=== PATIENT | female | born 1985 | race African-American/Black ===

== ENCOUNTER 2019-01-17 05:08 | Emergency (ER) | payer OTHER ==
[~2019-01-17] VITALS: Ht 170.2 cm; Wt 123.0 kg
[~2019-01-17 05:08] MED LIST: METF500T PO
[2019-01-17] MEDS ORDERED: ONDANSETRON 4MG ODT PO ONE (05:45)
[2019-01-17] MEDS ORDERED: ONDANSETRON HCL 4MG/2ML INJ IV STA (06:20)
[2019-01-17] MEDS ORDERED: SODIUM CHLORIDE 0.9% 1,000 ML IV ONE (06:20)
[2019-01-17 07:44] LABS: BASOPHILS % 0.8 % (0.0-2.0); EOSINOPHILS % 0.2 % (0.0-5.0); HEMATOCRIT. 39.9 % (36.0-48.0); HEMOGLOBIN. 12.9 g/dL (12.0-16.0); LYMPHOCYTES % 15.1 % (20.0-50.0); MEAN CORPUSCULAR HEMOGLOBIN 24.7 pg (28.0-32.0); MEAN CORPUSCULAR VOLUME 76.7 fL (81.0-99.0); MEAN PLATELET VOLUME 9.3 fl (7.4-10.4); MONOCYTES % 6.7 % (2.0-8.0); NEUTROPHILS % 77.2 % (40.0-76.0); PLATELET 220 x1000/uL (130-400); RED BLOOD CELL COUNT 5.21 mill/uL (4.2-5.4); RED CELL DISTRIBUTION WIDTH 14.4 % (11.6-14.6)
[2019-01-17 07:47] LABS: CHLORIDE 101 mEq/L (98-107)
[2019-01-17 07:52] LABS: ETHANOL BLOOD < 10 mg/dL
[2019-01-17] MEDS ORDERED: VISCOUS LIDOCAINE 2% 15 ML UDC PO ONE (09:30)
[2019-01-17 10:27] VITALS: BP 114/53
== END 2019-01-17 10:46 | disposition home or self-care (01) ==
LOC: ER 05:08
DX: F10.129 Alcohol abuse with intoxication, unspecified (principal); Y90.0 Blood alcohol level of less than 20 mg/100 ml; R11.2 Nausea with vomiting, unspecified; E11.9 Type 2 diabetes mellitus without complications
CPT/HCPCS: 36415; 80053; 80320; 81025; 82962; 83690; 85025; 96361; 96374; 99283; J2405; J7030; Q0162; G0480

== ENCOUNTER 2019-03-31 02:13 | Emergency (ER) | payer MEDICAID, OTHER ==
[~2019-03-31] VITALS: Ht 157.5 cm; Wt 123.0 kg
[2019-03-31 06:02] VITALS: BP 145/73
== END 2019-03-31 07:40 | disposition home or self-care (01) ==
LOC: ER 02:13
DX: H10.9 Unspecified conjunctivitis (principal); L56.8 Other specified acute skin changes due to ultraviolet radiation; R51 Headache; E11.9 Type 2 diabetes mellitus without complications
CPT/HCPCS: 99283

== ENCOUNTER 2019-09-23 18:34 | Emergency (ER) | payer MEDICAID ==
[~2019-09-23] VITALS: Ht 157.5 cm; Wt 122.0 kg
[2019-09-23] MEDS ORDERED: KETOROLAC 15MG/ML VIAL IV ONE (22:00)
[2019-09-23] MEDS ORDERED: ACETAMINOPHEN 325MG TABLET PO ONE (22:00)
[2019-09-24 00:52] VITALS: BP 112/64
== END 2019-09-24 01:02 | disposition home or self-care (01) ==
LOC: ER 18:34
DX: J06.9 Acute upper respiratory infection, unspecified (principal); R05 Cough; M79.10 Myalgia, unspecified site; E11.9 Type 2 diabetes mellitus without complications
CPT/HCPCS: 81025; 87804; 96374; 99283; J1885

== ENCOUNTER 2020-03-02 14:37 | Emergency (ER) | payer MEDICAID ==
[~2020-03-02] VITALS: Ht 157.5 cm; Wt 125.0 kg
[2020-03-02] MEDS ORDERED: BACITRACIN ZINC OINT UDPKT TOP ONE (15:15)
[2020-03-02] MEDS ORDERED: LIDOCAINE 1%/EPI 1:100,000 10 ML VIAL IJ ONE (15:15)
[2020-03-02] MEDS ORDERED: IBUPROFEN 600MG TABLET PO ONE (15:15)
[2020-03-02 16:14] VITALS: BP 119/77
== END 2020-03-02 16:15 | disposition home or self-care (01) ==
LOC: ER 14:37
DX: L02.413 Cutaneous abscess of right upper limb (principal); E11.9 Type 2 diabetes mellitus without complications
CPT/HCPCS: 99283; J3490

== ENCOUNTER 2020-05-03 10:11 | Emergency (ER) | payer MEDICAID ==
[~2020-05-03] VITALS: Ht 157.5 cm; Wt 122.0 kg
[2020-05-03 10:15] VITALS: BP 126/81
== END 2020-05-03 11:05 | disposition home or self-care (01) ==
LOC: ER 10:11
DX: B36.9 Superficial mycosis, unspecified (principal); L30.4 Erythema intertrigo; E11.9 Type 2 diabetes mellitus without complications
CPT/HCPCS: 99282; 99283

== ENCOUNTER 2020-05-17 23:27 | Emergency (ER) | payer MEDICAID, OTHER ==
[~2020-05-17] VITALS: Ht 170.2 cm; Wt 100.0 kg
[2020-05-17] MEDS ORDERED: SODIUM CHLORIDE 0.9% 1,000 ML IV ONE (23:50)
[2020-05-18] MEDS ORDERED: INSULIN REGULAR (HUMULIN R) 300UNITS/3ML SUBCUT NR ×2 (00:15→03:00)
[2020-05-18] MEDS ORDERED: ONDANSETRON HCL 4MG/2ML INJ IV ONE (00:15)
[2020-05-18 00:17] LABS: BASOPHILS % 0.5 % (0.0-2.0); EOSINOPHILS % 1.8 % (0.0-5.0); HEMATOCRIT. 39.2 % (36.0-48.0); HEMOGLOBIN. 12.6 g/dL (12.0-16.0); LYMPHOCYTES % 32.1 % (20.0-50.0); MEAN CORPUSCULAR HEMOGLOBIN 25.1 pg (28.0-32.0); MEAN CORPUSCULAR VOLUME 77.9 fL (81.0-99.0); MEAN PLATELET VOLUME 9.4 fl (7.4-10.4); NEUTROPHILS % 56.6 % (40.0-76.0); PLATELET 180 x1000/uL (130-400); RED BLOOD CELL COUNT 5.03 mill/uL (4.2-5.4); RED CELL DISTRIBUTION WIDTH 14.7 % (11.6-14.6)
[2020-05-18 00:19] LABS: CHLORIDE 102 mEq/L (98-107)
[2020-05-18 00:24] LABS: ETHANOL BLOOD < 10 mg/dL
[2020-05-18 00:31] LABS: HCG SCREEN NEGATIVE
[2020-05-18 02:20] LABS: CLARITY URINE CLEAR (CLEAR); COLOR URINE STRAW (YELLOW); PROTEIN URINE TRACE (NEGATIVE); SPECIFIC GRAVITY URINE 1.041 (1.005-1.030)
[2020-05-18 02:21] LABS: KETONES URINE NEGATIVE (NEGATIVE); NITRITE URINE NEGATIVE (NEGATIVE); OCCULT BLOOD URINE TRACE (NEGATIVE); UROBILINOGEN URINE 0.2 E.U./dL (0.2-1.0)
[2020-05-18 02:22] LABS: LEUKOCYTE ESTERASE URINE NEGATIVE (NEGATIVE)
[2020-05-18 02:27] LABS: *AMPHETAMINES SCREEN URINE NEGATIVE (NEGATIVE); *BARBITURATES SCREEN URINE NEGATIVE (NEGATIVE)
[2020-05-18 02:28] LABS: *BENZODIAZEPINES SCREEN URINE NEGATIVE (NEGATIVE); *COCAINE SCREEN URINE NEGATIVE (NEGATIVE); CANNABINOID URINE SCREEN PRESUMTIVE POSITIVE (NEGATIVE); METHADONE URINE SCREEN NEGATIVE (NEGATIVE); OPIATES URINE SCREEN NEGATIVE (NEGATIVE); PHENCYCLIDINE URINE SCREEN NEGATIVE (NEGATIVE)
[2020-05-18] MEDS ORDERED: INSULIN REGULAR (HUMULIN R) UD 100 UNITS/ML SYR SUBCUT ONE ×2 (02:45)
[2020-05-18 06:00] VITALS: BP 142/82
== END 2020-05-18 06:30 | disposition home or self-care (01) ==
LOC: ER 23:27
DX: T40.7X1A Poisoning by cannabis (derivatives), accidental (unintentional), initial encounter (principal); Y92.9 Unspecified place or not applicable; E11.65 Type 2 diabetes mellitus with hyperglycemia; Z79.4 Long term (current) use of insulin
CPT/HCPCS: 36415; 80053; 80305; 80320; 81003; 82962; 84703; 85025; 93005; 96361; 96372; 96374; 99285; J1815; J2405; J7030; G0480

== ENCOUNTER 2020-09-01 16:17 | Emergency (ER) | payer MEDICAID, OTHER ==
[~2020-09-01] VITALS: Ht 157.5 cm; Wt 126.0 kg
[2020-09-01 20:14] VITALS: BP 139/90
== END 2020-09-01 20:17 | disposition home or self-care (01) ==
LOC: ER 16:17
DX: M79.652 Pain in left thigh (principal); L02.416 Cutaneous abscess of left lower limb; L73.9 Follicular disorder, unspecified; E11.9 Type 2 diabetes mellitus without complications; F12.10 Cannabis abuse, uncomplicated
CPT/HCPCS: 99282; 99283

== ENCOUNTER 2020-09-17 09:03 | Emergency (ER) | payer OTHER ==
[~2020-09-17] VITALS: Ht 157.5 cm; Wt 125.0 kg
[2020-09-17] MEDS ORDERED: KETOROLAC 60MG/2ML VIAL IM ONE (10:15)
[2020-09-17 10:21] VITALS: BP 159/94
== END 2020-09-17 10:54 | disposition home or self-care (01) ==
LOC: ER 09:03
DX: K04.7 Periapical abscess without sinus (principal); R68.84 Jaw pain; E11.9 Type 2 diabetes mellitus without complications; F12.10 Cannabis abuse, uncomplicated; Z79.84 Long term (current) use of oral hypoglycemic drugs
CPT/HCPCS: 96372; 99283; J1885

== ENCOUNTER 2021-02-13 17:32 | Emergency (ER) | payer MEDICAID, OTHER ==
[~2021-02-13] VITALS: Ht 157.5 cm; Wt 126.0 kg
[2021-02-13] MEDS ORDERED: BACITRACIN ZINC OINT UDPKT TOP ONE (18:00)
[2021-02-13] MEDS ORDERED: LIDOCAINE HCL/PF 1% 10 MG/ML 5ML VIAL IJ ONE (18:00)
[2021-02-13] MEDS ORDERED: CEPH500C2 MT (18:10)
[2021-02-13] MEDS ORDERED: IBUP-2029 MT (18:10)
[2021-02-13] MEDS ORDERED: SULF1TAB48 MT (18:10)
[2021-02-13] MEDS ORDERED: IBUPROFEN 600MG TABLET PO ONE (18:15)
[2021-02-13 18:41] VITALS: BP 130/90
== END 2021-02-13 18:59 | disposition home or self-care (01) ==
LOC: ER 17:32
DX: J02.9 Acute pharyngitis, unspecified (principal); L02.611 Cutaneous abscess of right foot; E11.9 Type 2 diabetes mellitus without complications; F12.10 Cannabis abuse, uncomplicated; Z79.84 Long term (current) use of oral hypoglycemic drugs
CPT/HCPCS: 99283; Z7610

== ENCOUNTER 2022-11-29 14:13 | Emergency (ER) | payer MEDICAID, OTHER ==
[~2022-11-29] VITALS: Ht 167.6 cm; Wt 118.0 kg
[~2022-11-29 14:13] MED LIST changes: +CEPH500C2 MT; +IBUP-2029 MT; +SULF1TAB48 MT
[2022-11-29 14:16] VITALS: BP 155/87
[2022-11-29 17:09] LABS: HEMATOCRIT. 39.5 % (36.0-48.0); HEMOGLOBIN. 12.8 g/dL (12.0-16.0); MEAN CORPUSCULAR VOLUME 77.1 fL (81.0-99.0); PLATELET 191 x1000/uL (130-400); RED BLOOD CELL COUNT 5.12 mill/uL (4.2-5.4); RED CELL DISTRIBUTION WIDTH 14.1 % (11.6-14.6)
[2022-11-29 17:24] LABS: CHLORIDE 102 mEq/L (98-107)
[2022-11-29 17:32] LABS: HCG SCREEN NEGATIVE
[2022-11-29 17:39] LABS: PLATELET ESTIMATE NORMAL
== END 2022-11-29 23:39 | disposition left against medical advice (07) ==
LOC: ER 16:46
DX: Z53.21 Procedure and treatment not carried out due to patient leaving prior to being seen by health care provider (principal); E11.9 Type 2 diabetes mellitus without complications
CPT/HCPCS: 36415; 76705; 80053; 84703; 85025; 99281; 99284

== ENCOUNTER 2023-01-12 17:52 | Inpatient (IN) | payer OTHER ==
[~2023-01-12] VITALS: Ht 162.6 cm; Wt 118.0 kg
[2023-01-12] MEDS ORDERED: ONDANSETRON HCL 4MG/2ML INJ IV STA (18:10)
[2023-01-12] MEDS ORDERED: MAGNESIUM/ALUMINUM HYDROXIDE/SIMETHICONE 30ML UDC PO ONE (18:15)
[2023-01-12] MEDS ORDERED: SODIUM CHLORIDE 0.9% 1,000 ML IV ONE (18:15)
[2023-01-12] MEDS ORDERED: VISCOUS LIDOCAINE 2% 15 ML UDC PO ONE (18:15)
[2023-01-12 19:50] LABS: HEMATOCRIT. 32.9 % (36.0-48.0); HEMOGLOBIN. 10.8 g/dL (12.0-16.0); MEAN CORPUSCULAR VOLUME 76.2 fL (81.0-99.0); MEAN PLATELET VOLUME 9.6 fl (7.4-10.4); PLATELET 179 x1000/uL (130-400); RED BLOOD CELL COUNT 4.32 mill/uL (4.2-5.4); RED CELL DISTRIBUTION WIDTH 15.8 % (11.6-14.6)
[2023-01-12 19:59] LABS: CHLORIDE 96 mEq/L (98-107)
[2023-01-12] MEDS ORDERED: MAGNESIUM/ALUMINUM HYDROXIDE/SIMETHICONE 30ML UDC PO NR (20:00)
[2023-01-12] MEDS ORDERED: VISCOUS LIDOCAINE 2% 15 ML UDC PO NR (20:00)
[2023-01-12 20:09] LABS: ETHANOL BLOOD < 10 mg/dL
[2023-01-12] MEDS ORDERED: DOXYCYCLINE 100 MG in DEXT 5% WATER 100 ML IV SCH (20:45)
[2023-01-12] MEDS ORDERED: ONDANSETRON HCL 4MG/2ML INJ IV NR (20:45)
[2023-01-12] MEDS ORDERED: MORPHINE SULFATE 4 MG/ML CPJ (NOT FOR IM USE) IV NR (20:45)
[2023-01-12] MEDS ORDERED: CEFTRIAXONE 2 G in DEXTROSE 5% WATER 50 ML IV NR (20:45)
[2023-01-12] MEDS ORDERED: LABETALOL 5MG/ML SYR 20 MG/4 ML SYRINGE IV ONE (21:15)
[2023-01-12 21:56] LABS: PLATELET ESTIMATE NORMAL
[2023-01-12 22:27] LABS: *AMPHETAMINES SCREEN URINE NEGATIVE (NEGATIVE); *BARBITURATES SCREEN URINE NEGATIVE (NEGATIVE); *BENZODIAZEPINES SCREEN URINE NEGATIVE (NEGATIVE); *COCAINE SCREEN URINE NEGATIVE (NEGATIVE); CANNABINOID URINE SCREEN NEGATIVE (NEGATIVE); METHADONE URINE SCREEN NEGATIVE (NEGATIVE); OPIATES URINE SCREEN NEGATIVE (NEGATIVE); PHENCYCLIDINE URINE SCREEN NEGATIVE (NEGATIVE)
[2023-01-13] MEDS ORDERED: DIPHENHYDRAMINE 50MG/ML VIAL IV PRN
[2023-01-13] MEDS ORDERED: ONDANSETRON HCL 4MG/2ML INJ IV PRN
[2023-01-13] MEDS ORDERED: HYDRALAZINE 20MG/ML VIAL IV PRN
[2023-01-13] MEDS ORDERED: ACETAMINOPHEN 325MG TABLET PO PRN
[2023-01-13] MEDS ORDERED: DEXTROSE 50% WATER 50ML SYRINGE IV PRN
[2023-01-13] MEDS ORDERED: NALOXONE HCL 0.4MG/ML VIAL IV PRN (00:15)
[2023-01-13] MEDS ORDERED: LEVOFLOXACIN 500MG PREMIX 100 ML IV NR (00:15)
[2023-01-13] MEDS ORDERED: MORPHINE SULFATE 2 MG/ML CPJ (NOT FOR IM USE) IV PRN (00:15)
[2023-01-13] MEDS: BLOOD SUGAR DIAGNOSTIC STRIP TEST SCH ×5 (00:50→23:14)
[2023-01-13] MEDS: SODIUM CHLORIDE 0.9% 1,000 ML IV SCH ×4 (00:57→23:04)
[2023-01-13 05:35] LABS: HEMOGLOBIN. 10.4 g/dL (12.0-16.0); MEAN CORPUSCULAR HEMOGLOBIN 24.5 pg (28.0-32.0); MEAN CORPUSCULAR VOLUME 75.7 fL (81.0-99.0); MEAN PLATELET VOLUME 8.8 fl (7.4-10.4); PLATELET 164 x1000/uL (130-400); RED BLOOD CELL COUNT 4.23 mill/uL (4.2-5.4); RED CELL DISTRIBUTION WIDTH 15.5 % (11.6-14.6)
[2023-01-13 05:47] LABS: CHLORIDE 98 mEq/L (98-107)
[2023-01-13 05:50] LABS: PHOSPHORUS 3.2 mg/dL (2.5-4.9)
[2023-01-13 06:42] LABS: PLATELET ESTIMATE NORMAL
[2023-01-13] MEDS: PANTOPRAZOLE SODIUM 40 MG/VIAL IV SCH ×2 (07:14→17:18)
[2023-01-13] MEDS: SUCRALFATE 1 G/10 ML UDC PO SCH ×4 (09:53→22:03)
[2023-01-13 10:00] VITALS: BP 149/84
[2023-01-13] MEDS ORDERED: MAGNESIUM 2 G PREMIX 50 ML IV ONE (10:00)
[2023-01-13] MEDS: INSULIN LISPRO 100 UNITS/ML SUBCUT SCH ×4 (10:09→21:00)
[2023-01-13 10:13] VITALS: BP 149/84
[2023-01-13] MEDS: METOCLOPRAMIDE HCL 10MG/2ML VIAL IV SCH ×3 (11:56→23:03)
[2023-01-13] MEDS ORDERED: MAGNESIUM 2 G PREMIX 50 ML IV SCH (12:00)
[2023-01-13 14:32] LABS: TOTAL IRON BINDING CAPACITY 182 ug/dL (250-450)
[2023-01-13 15:02] LABS: VITAMIN B12 SERUM 604 pg/mL (211-911)
[2023-01-13] MEDS: PROMETHAZINE/DEXTROMETHORPHAN 6.25-15MG/5ML BOTTLE 120ML PO PRN (15:06)
[2023-01-13 15:07] LABS: FERRITIN 147 ng/mL (10-291)
[2023-01-13] MEDS ORDERED: LISI-186 MT (15:22)
[2023-01-13 16:00] VITALS: BP 129/64
[2023-01-13] MEDS: ACETAMINOPHEN 325MG TABLET PO PRN (16:31)
[2023-01-13 20:00] VITALS: BP 132/72
[2023-01-13] MEDS ORDERED: LEVOFLOXACIN 500MG PREMIX 100 ML IV SCH (21:00)
[2023-01-13] MEDS: GUAIFENESIN 600MG ER TABLET PO SCH (22:03)
[2023-01-13] MEDS: LEVOFLOXACIN 500MG PREMIX 100 ML IV SCH (22:50)
[2023-01-14] VITALS: BP 135/70
[2023-01-14 04:00] VITALS: BP 141/80
[2023-01-14] MEDS: PROMETHAZINE/DEXTROMETHORPHAN 6.25-15MG/5ML BOTTLE 120ML PO PRN ×2 (04:14→16:22)
[2023-01-14] MEDS: ACETAMINOPHEN 325MG TABLET PO PRN (04:15)
[2023-01-14] MEDS: BLOOD SUGAR DIAGNOSTIC STRIP TEST SCH ×3 (06:00→17:22)
[2023-01-14] MEDS: PANTOPRAZOLE SODIUM 40 MG/VIAL IV SCH ×2 (06:42→17:01)
[2023-01-14] MEDS: METOCLOPRAMIDE HCL 10MG/2ML VIAL IV SCH ×3 (06:45→17:01)
[2023-01-14 07:10] LABS: HEMATOCRIT. 30.8 % (36.0-48.0); HEMOGLOBIN. 10.3 g/dL (12.0-16.0); MEAN CORPUSCULAR HEMOGLOBIN 25.3 pg (28.0-32.0); MEAN CORPUSCULAR VOLUME 75.4 fL (81.0-99.0); PLATELET 159 x1000/uL (130-400); RED BLOOD CELL COUNT 4.09 mill/uL (4.2-5.4); RED CELL DISTRIBUTION WIDTH 15.5 % (11.6-14.6)
[2023-01-14 07:33] LABS: CHLORIDE 101 mEq/L (98-107)
[2023-01-14 08:00] VITALS: BP 141/82
[2023-01-14] MEDS: INSULIN LISPRO 100 UNITS/ML SUBCUT SCH ×4 (08:10→21:00)
[2023-01-14] MEDS ORDERED: POTASSIUM CHLORIDE INJ 40 MEQ in DEXT 5% WATER 250 ML IV ONE (09:00)
[2023-01-14] MEDS ORDERED: LACTULOSE 20G/30ML UDC PO NR (09:30)
[2023-01-14] MEDS: SODIUM CHLORIDE 0.9% 1,000 ML IV SCH ×2 (09:42→16:23)
[2023-01-14] MEDS: SUCRALFATE 1 G/10 ML UDC PO SCH ×4 (09:42→22:32)
[2023-01-14] MEDS: GUAIFENESIN 600MG ER TABLET PO SCH ×2 (09:42→22:32)
[2023-01-14] MEDS ORDERED: KCL 20MEQ/100ML X 2 FOR TOTAL KCL 40MEQ/200ML IV SCH (11:00)
[2023-01-14 12:00] VITALS: BP 161/86
[2023-01-14] MEDS ORDERED: POTASSIUM CHLORIDE 20MEQ TABLET SR PO NR (13:00)
[2023-01-14 14:11] LABS: PLATELET ESTIMATE NORMAL
[2023-01-14 16:00] VITALS: BP 158/91
[2023-01-14] MEDS ORDERED: TEMAZEPAM 15MG CAPSULE PO PRN (17:30)
[2023-01-14 20:00] VITALS: BP 144/67
[2023-01-14] MEDS: LEVOFLOXACIN 500MG PREMIX 100 ML IV SCH (22:32)
[2023-01-15] VITALS: BP 145/69
[2023-01-15] MEDS: METOCLOPRAMIDE HCL 10MG/2ML VIAL IV SCH ×3 (01:46→12:40)
[2023-01-15] MEDS: SODIUM CHLORIDE 0.9% 1,000 ML IV SCH ×3 (01:46→10:11)
[2023-01-15 04:00] VITALS: BP 149/68
[2023-01-15 06:05] LABS: INR 1.2; PROTHROMBIN TIME 12.5 sec (9.6-11.0)
[2023-01-15] MEDS: BLOOD SUGAR DIAGNOSTIC STRIP TEST SCH ×3 (06:06→12:41)
[2023-01-15] MEDS: PANTOPRAZOLE SODIUM 40 MG/VIAL IV SCH (06:06)
[2023-01-15 06:19] LABS: BASOPHILS % 0.6 % (0.0-2.0); EOSINOPHILS % 2.3 % (0.0-5.0); HEMATOCRIT. 29.7 % (36.0-48.0); HEMOGLOBIN. 9.9 g/dL (12.0-16.0); MEAN CORPUSCULAR HEMOGLOBIN 25.1 pg (28.0-32.0); MEAN CORPUSCULAR VOLUME 75.6 fL (81.0-99.0); MEAN PLATELET VOLUME 9.1 fl (7.4-10.4); MONOCYTES % 11.5 % (2.0-8.0); NEUTROPHILS % 33.6 % (40.0-76.0); PLATELET 179 x1000/uL (130-400); RED BLOOD CELL COUNT 3.94 mill/uL (4.2-5.4); RED CELL DISTRIBUTION WIDTH 15.5 % (11.6-14.6)
[2023-01-15] MEDS: INSULIN LISPRO 100 UNITS/ML SUBCUT SCH ×2 (07:52→12:40)
[2023-01-15 08:00] VITALS: BP 152/80
[2023-01-15 08:26] LABS: CHLORIDE 104 mEq/L (98-107)
[2023-01-15] MEDS: GUAIFENESIN 600MG ER TABLET PO SCH (10:09)
[2023-01-15] MEDS: SUCRALFATE 1 G/10 ML UDC PO SCH ×2 (10:10→12:40)
[2023-01-15] MEDS: ACETAMINOPHEN 325MG TABLET PO PRN (10:13)
[2023-01-15 15:34] VITALS: BP 138/78
== END 2023-01-15 18:18 | disposition home or self-care (01) | DRG 241 ==
LOC: ER 17:52 → 7WST 01-13 09:38
PROVIDERS: ADMIT Internal Medicine; ATTEND Internal Medicine
DX: K29.00 Acute gastritis without bleeding (principal); E43 Unspecified severe protein-calorie malnutrition; J18.9 Pneumonia, unspecified organism; D50.9 Iron deficiency anemia, unspecified; E11.9 Type 2 diabetes mellitus without complications; E66.01 Morbid (severe) obesity due to excess calories; I10 Essential (primary) hypertension; Z20.822 Contact with and (suspected) exposure to COVID-19; M48.00 Spinal stenosis, site unspecified; Z79.84 Long term (current) use of oral hypoglycemic drugs; Z83.3 Family history of diabetes mellitus; Z79.899 Other long term (current) drug therapy; Z68.41 Body mass index [BMI] 40.0-44.9, adult
CPT/HCPCS: 36415; 71045; 74018; 74176; 80048; 80053; 80305; 80320; 82607; 82728; 82746; 82962; 83540; 83550; 83605; 83735; 83880; 84100; 84484; 85025; 85044; 86850; 86900; 87426; 93005; 99285; C9113; C9803; J0696; J1815; J1956; J2270; J2405; J2765; J3475; J3480; J3490; J7030; J7060; G0480

== ENCOUNTER 2023-02-09 22:20 | Emergency (ER) | payer OTHER ==
[~2023-02-09] VITALS: Ht 157.5 cm; Wt 110.0 kg
[~2023-02-09 22:20] MED LIST changes: +LISI-186 MT
[2023-02-09 22:23] VITALS: BP 150/85
[2023-02-10] MEDS ORDERED: MAGNESIUM/ALUMINUM HYDROXIDE/SIMETHICONE 30ML UDC PO STA (00:25)
[2023-02-10] MEDS ORDERED: VISCOUS LIDOCAINE 2% 15 ML UDC PO STA (00:25)
[2023-02-10] MEDS ORDERED: FAMOTIDINE 20MG TABLET PO ONE (00:30)
[2023-02-10 01:03] LABS: BASOPHILS % 0.9 % (0.0-2.0); EOSINOPHILS % 1.9 % (0.0-5.0); HEMATOCRIT. 39.5 % (36.0-48.0); HEMOGLOBIN. 12.9 g/dL (12.0-16.0); LYMPHOCYTES % 50.2 % (20.0-50.0); MEAN CORPUSCULAR HEMOGLOBIN 24.8 pg (28.0-32.0); MEAN CORPUSCULAR VOLUME 75.5 fL (81.0-99.0); MEAN PLATELET VOLUME 9.6 fl (7.4-10.4); MONOCYTES % 8.7 % (2.0-8.0); NEUTROPHILS % 38.3 % (40.0-76.0); PLATELET 225 x1000/uL (130-400); RED BLOOD CELL COUNT 5.23 mill/uL (4.2-5.4); RED CELL DISTRIBUTION WIDTH 15.4 % (11.6-14.6)
[2023-02-10 01:12] LABS: CHLORIDE 102 mEq/L (98-107)
[2023-02-10 01:19] LABS: HCG SCREEN NEGATIVE
[2023-02-10] MEDS ORDERED: FAMO-135 MT (02:17)
[2023-02-10] MEDS ORDERED: MAG-55 MT (02:17)
== END 2023-02-10 02:33 | disposition home or self-care (01) ==
LOC: ER 22:20
DX: R10.9 Unspecified abdominal pain (principal); E11.9 Type 2 diabetes mellitus without complications; Z79.899 Other long term (current) drug therapy
CPT/HCPCS: 36415; 80053; 84703; 85025; 99283

== ENCOUNTER 2023-02-16 23:15 | Emergency (ER) | payer MEDICAID, OTHER ==
[~2023-02-16] VITALS: Ht 157.5 cm; Wt 113.0 kg
[~2023-02-16 23:15] MED LIST changes: +FAMO-135 MT; +MAG-55 MT
[2023-02-17 03:32] LABS: EOSINOPHILS % 0.4 % (0.0-5.0); HEMATOCRIT. 41.6 % (36.0-48.0); HEMOGLOBIN. 13.5 g/dL (12.0-16.0); LYMPHOCYTES % 29.7 % (20.0-50.0); MEAN CORPUSCULAR HEMOGLOBIN 24.4 pg (28.0-32.0); MEAN CORPUSCULAR VOLUME 75.1 fL (81.0-99.0); MEAN PLATELET VOLUME 9.3 fl (7.4-10.4); MONOCYTES % 7.1 % (2.0-8.0); NEUTROPHILS % 61.8 % (40.0-76.0); PLATELET 257 x1000/uL (130-400); RED BLOOD CELL COUNT 5.53 mill/uL (4.2-5.4); RED CELL DISTRIBUTION WIDTH 15.3 % (11.6-14.6)
[2023-02-17 03:41] LABS: CHLORIDE 101 mEq/L (98-107)
[2023-02-17] MEDS ORDERED: KETOROLAC 15MG/ML VIAL IM ONE (03:45)
[2023-02-17 04:02] LABS: HCG SCREEN NEGATIVE
[2023-02-17 07:32] LABS: CLARITY URINE CLOUDY (CLEAR); COLOR URINE YELLOW (YELLOW); KETONES URINE 1+ (NEGATIVE); LEUKOCYTE ESTERASE URINE NEGATIVE (NEGATIVE); NITRITE URINE NEGATIVE (NEGATIVE); OCCULT BLOOD URINE 3+ (NEGATIVE); PH URINE 6.5 (4.5-8.0); PROTEIN URINE 4+ (NEGATIVE); SPECIFIC GRAVITY URINE 1.028 (1.005-1.030); UROBILINOGEN URINE 0.2 E.U./dL (0.2-1.0)
[2023-02-17] MEDS ORDERED: POLY17PO3 PO (08:23)
[2023-02-17] MEDS ORDERED: TOPUD PO (08:23)
[2023-02-17] MEDS ORDERED: LACTULOSE 20G/30ML UDC PO ONE (08:30)
[2023-02-17 09:30] VITALS: BP 145/85
== END 2023-02-17 09:32 | disposition home or self-care (01) ==
LOC: ER 23:15
DX: R10.9 Unspecified abdominal pain (principal); K59.00 Constipation, unspecified; E11.9 Type 2 diabetes mellitus without complications; I10 Essential (primary) hypertension; Z79.899 Other long term (current) drug therapy
CPT/HCPCS: 36415; 74176; 80053; 81003; 83690; 84703; 85025; 96372; 99285; J1885; Z7610

== ENCOUNTER 2023-05-17 16:37 | Emergency (ER) | payer OTHER ==
[~2023-05-17] VITALS: Ht 157.5 cm; Wt 100.0 kg
[~2023-05-17 16:37] MED LIST changes: +METO-293 MT; +POLY17PO3 PO; +TOPUD PO
[2023-05-17 16:40] VITALS: O2SAT 99
[2023-05-17 17:16] LABS: BASOPHILS % 0.9 % (0.0-2.0); DIFFERENTIAL COMMENT 0; EOSINOPHILS % 1.5 % (0.0-5.0); HEMATOCRIT. 33.7 % (36.0-48.0); HEMOGLOBIN. 11.2 g/dL (12.0-16.0); LYMPHOCYTES % 38.9 % (20.0-50.0); MEAN CORPUSCULAR HGB CONC 33.3 g/dL (31.0-37.0); MEAN PLATELET VOLUME 9.2 fl (7.4-10.4); MONOCYTES % 8.6 % (2.0-8.0); NEUTROPHILS % 50.1 % (40.0-76.0); PLATELET 262 x1000/uL (130-400); RED CELL DISTRIBUTION WIDTH 14.8 % (11.6-14.6); WHITE BLOOD COUNT 9.2 x1000/uL (4.5-11.0)
[2023-05-17 17:34] LABS: CLARITY URINE CLOUDY (CLEAR); COLOR URINE YELLOW (YELLOW); GLUCOSE URINE 3+ (NEGATIVE); KETONES URINE NEGATIVE (NEGATIVE); LEUKOCYTE ESTERASE URINE TRACE (NEGATIVE); NITRITE URINE NEGATIVE (NEGATIVE); OCCULT BLOOD URINE 1+ (NEGATIVE); PH URINE 5.5 (4.5-8.0); PROTEIN URINE 3+ (NEGATIVE); SPECIFIC GRAVITY URINE 1.025 (1.005-1.030); UROBILINOGEN URINE 0.2 E.U./dL (0.2-1.0)
[2023-05-17 17:40] LABS: CHLORIDE 106 mEq/L (98-107); INDEX HEMOLYSI 1 (1-3); INDEX ICTERIC 1 (1-4); INDEX LIPEMIC 1 (1-3); POTASSIUM 3.9 mEq/L (3.5-5.1); SODIUM 136 mEq/L (136-145)
[2023-05-17 17:44] LABS: PROTHROMBIN TIME 10.3 sec (9.6-11.0)
[2023-05-17 17:50] LABS: ALANINE AMINOTRANSFERASE 13 IU/L (13-61); ALBUMIN 2.9 g/dL (3.4-5.0); ASPARTATE AMINOTRANSFERASE 9 IU/L (15-37); BILIRUBIN TOTAL 0.2 mg/dL (0.1-1.0); CARBON DIOXIDE 24 mEq/L (21-32); CREATININE 0.8 mg/dL (0.6-1.3); NT PRO B-TYPE NATRIURETIC PEP 242 pg/mL (5-125); PROTEIN TOTAL 7.2 g/dL (6.0-8.3); TROPONIN I HIGH SENSITIVITY 6 ng/L (<54); UREA NITROGEN BLOOD 14 mg/dL (7-21)
[2023-05-17 18:02] LABS: SQUAMOUS EPITHELIAL CELL URINE 1+ /lpf (RARE/1+)
[2023-05-17 18:04] LABS: WBC URINE 15-25 /hpf (0-2)
[2023-05-17 18:05] LABS: BACTERIA URINE 3+; YEAST URINE NONE SEEN
[2023-05-17 18:11] LABS: GLUCOSE 437 mg/dL (70-105)
[2023-05-17] MEDS ORDERED: NITR-87 MT (18:55)
[2023-05-17 19:36] VITALS: BP 152/97; PULSE 94; RESP 18; TEMP 98.5
== END 2023-05-17 19:40 | disposition home or self-care (01) ==
LOC: ER 16:37
DX: N39.0 Urinary tract infection, site not specified (principal); E11.65 Type 2 diabetes mellitus with hyperglycemia; R07.89 Other chest pain; K21.9 Gastro-esophageal reflux disease without esophagitis; I10 Essential (primary) hypertension
CPT/HCPCS: 36415; 71045; 80053; 81003; 81025; 83880; 84484; 85025; 93005; 99285

== ENCOUNTER 2023-06-27 04:33 | Emergency (ER) | payer MEDICAID, OTHER ==
[~2023-06-27] VITALS: Ht 157.5 cm; Wt 85.2 kg
[~2023-06-27 04:33] MED LIST changes: +NITR-87 MT
[2023-06-27 04:48] VITALS: BP 155/89; PULSE 89; RESP 14; TEMP 98.2; O2SAT 100
[2023-06-27] MEDS ORDERED: ACETAMINOPHEN 325MG TABLET PO ONE (05:30)
[2023-06-27] MEDS ORDERED: TOPUD PO (06:40)
== END 2023-06-27 08:04 | disposition home or self-care (01) ==
LOC: ER 04:33
DX: M79.605 Pain in left leg (principal); M79.604 Pain in right leg; E11.9 Type 2 diabetes mellitus without complications; I10 Essential (primary) hypertension; Z79.899 Other long term (current) drug therapy
CPT/HCPCS: 73590; 99283

== ENCOUNTER 2024-03-16 21:21 | Emergency (ER) | payer OTHER ==
[~2024-03-16] VITALS: Ht 157.5 cm; Wt 122.0 kg
[2024-03-16 22:18] VITALS: TEMP 98.8; O2SAT 99
[2024-03-17 01:22] VITALS: BP 135/90; PULSE 95; RESP 18
[2024-03-17] MEDS: DIPHENHYDRAMINE 50MG/ML VIAL IM ONE (01:22)
[2024-03-17] MEDS: KETOROLAC 30MG/ML VIAL IM ONE (01:22)
[2024-03-17] MEDS: METOCLOPRAMIDE HCL 10MG/2ML VIAL IM ONE (01:22)
[2024-03-17] MEDS ORDERED: METH-653 MT (01:41)
[2024-03-17] MEDS ORDERED: IBUP-2029 MT (01:41)
== END 2024-03-17 02:08 | disposition home or self-care (01) ==
LOC: ER 21:21
DX: S13.4XXA Sprain of ligaments of cervical spine, initial encounter (principal); G43.909 Migraine, unspecified, not intractable, without status migrainosus; E11.9 Type 2 diabetes mellitus without complications; K21.9 Gastro-esophageal reflux disease without esophagitis; I10 Essential (primary) hypertension; Z79.899 Other long term (current) drug therapy; X58.XXXA Exposure to other specified factors, initial encounter; Y93.89 Activity, other specified; Y92.89 Other specified places as the place of occurrence of the external cause; Y99.8 Other external cause status
CPT/HCPCS: 99284; 96372; J1200; J1885; J2765